=== PATIENT | male | born 1945 | race Caucasian/White ===

== ENCOUNTER 2023-05-08 14:34 | Observation (INO) ==
[2023-05-08 15:38] LABS: ABS Basophils 0.1 10^3/uL (0.0-0.1); ABS Eosinophils 0.2 10^3/uL (0.0-0.5); ABS Lymphocytes 1.3 10^3/uL (1.0-4.8); ABS Monocytes 0.5 10^3/uL (0.0-1.1); ABS Neutrophils 6.9 10^3/uL (1.5-7.6); ABS Nucleated RBC 0.01 10^3/ul; Eosinophil % 2.1 %; Hematocrit 47.5 % (38-53); Lymphocyte % 14.4 %; Mean Corpuscular Hemoglobin 29.7 pg (27-33); Mean Corpuscular Hgb Conc 33.7 g/dL (31-36); Mean Corpuscular Volume 88.2 fL (80-97); Mean Platelet Volume 7.4 fL (7.5-11.2); Nucleated Red Blood Cells % 0.2 %/100WBC (0.0-0.8); Platelet Count 234 10^3/uL (150-450); Red Blood Count 5.39 10^6/uL (4.06-5.63); Red Cell Distribution Width 13.7 % (12-17)
[2023-05-08 15:47] LABS: INR 0.95 (0.83-1.13)
[2023-05-08 15:51] LABS: Urine Appearance Clear; Urine Bilirubin Negative (Negative); Urine Blood Negative (Negative); Urine Color Yellow; Urine Glucose Negative (Negative); Urine Ketones Trace (Negative); Urine Nitrite Negative (Negative); Urine Protein Negative (Negative); Urine Specific Gravity 1.019 (1.002-1.030); Urine Urobilinogen Negative (Negative); Urine pH 5.5 (5.0-8.0)
[2023-05-08 16:20] LABS: Albumin 4.3 g/dL (3.2-5.2); Albumin/Globulin Ratio 1.5 (1-3); C Reactive Protein 5.54 mg/L (<8.01); Calcium 9.4 mg/dL (8.6-10.3); Creatinine, Serum 1.5 mg/dL (0.67-1.17); Globulin 2.8 g/dL (2-4); Phosphorus 3.1 mg/dL (2.5-5.0); Potassium 3.9 mmol/L (3.5-5.0); Total Bilirubin 0.5 mg/dL (0.2-1.0); Total Protein 7.1 g/dL (6.4-8.9); eGFR CKD-EPI 47.7 (>60)
[2023-05-08 17:02] LABS: High Sensitivity Troponin 1 Hr 5 pg/mL (<20)
[2023-05-08] MEDS ORDERED: Lisinopril/HCTZ 20/12.5 TB(NF) PO SCH (21:00)
[2023-05-08] MEDS: Enoxaparin 40 MG/0.4 ML SYR SUBCUT SCH (21:26)
[2023-05-09 06:28] LABS: ABS Eosinophils 0.3 10^3/uL (0.0-0.5); ABS Lymphocytes 2.2 10^3/uL (1.0-4.8); ABS Monocytes 0.5 10^3/uL (0.0-1.1); ABS Neutrophils 3.8 10^3/uL (1.5-7.6); ABS Nucleated RBC 0.02 10^3/ul; Hematocrit 44.8 % (38-53); Lymphocyte % 32.3 %; Mean Corpuscular Hemoglobin 29.5 pg (27-33); Mean Corpuscular Hgb Conc 33.6 g/dL (31-36); Mean Corpuscular Volume 87.9 fL (80-97); Mean Platelet Volume 7.8 fL (7.5-11.2); Nucleated Red Blood Cells % 0.2 %/100WBC (0.0-0.8); Platelet Count 204 10^3/uL (150-450); Red Blood Count 5.09 10^6/uL (4.06-5.63); Red Cell Distribution Width 13.5 % (12-17); White Blood Count 6.8 10^3/uL (3.6-10.2)
[2023-05-09 06:50] LABS: Calcium 8.8 mg/dL (8.6-10.3); Creatinine, Serum 1.3 mg/dL (0.67-1.17); Potassium 4.1 mmol/L (3.5-5.0); eGFR CKD-EPI 56.6 (>60)
[2023-05-09 14:57] VITALS: BP 141/86
== END 2023-05-09 16:58 | disposition home or self-care (01) ==
LOC: EDHOLD 14:34 → ED 14:34 → SUATTDRO 17:57 → MEDTELE 19:59
PROVIDERS: ADMIT Hospitalist; ATTEND Internal Medicine